=== PATIENT | female | born 1975 | race Caucasian/White ===

== ENCOUNTER → 2016-10-02 | Outpatient (CLI) | payer OTHER ==
--- NOTE | 2016-10-02 08:28 | US ---
Pelvic Ultrasound (Transabdominal and Endovaginal) with color flow and spectral Doppler History: Menorrhagia. Previous laparoscopic procedures for endometriosis. Previous partial resection of ovaries secondary to ovarian cyst. Comparison: December 31, 2007 Findings: The pelvis was first examined through a moderately distended bladder from TRANSABDOMINAL approach. UTERUS: Size: 8.8 x 3.4 x 5.4 cm in longitudinal, AP, and transverse projections. Orientation: Anteverted and slightly retroflexed. Uterine Masses: None seen. Endometrium: Not well delineated. ADNEXA: No adnexal masses. The pelvis was then evaluated from ENDOVAGINAL approach after the bladder was emptied to better evalu ate the uterus and adnexa. UTERUS: Orientation: Anteverted. Masses: None. Endometrium: Normal measuring 2-3 mm in thickness. ADNEXA: The left ovary is not visualized. No adnexal mass is seen on the left. There are 2 small nichelle gn-appearing follicular cysts associated with the right ovary. Right ovary size: 1.7 x 2.3 x 3.3 cm Left ovary: Not delineated Color flow and spectral Doppler: Normal color flow imaging with normal Doppler waveform on the right. Free fluid: None. Other findings: None. Impression: 1. Normal-appearing uterus with normal thin endometrial stripe. 2. Follicular cysts associated with the right ovary. 3. Left ovary not positively identified. No left adnexal mass.
== END ==
LOC: FIMAGING 07:29
PROVIDERS: ATTEND Physician Assistant
DX: N83.01 Follicular cyst of right ovary (principal)

== ENCOUNTER 2018-02-18 16:33 | Emergency (ER) | payer OTHER ==
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
[2018-02-18] MEDS ORDERED: IBUPROFEN 600 MG TAB PO ONE (17:22)
[2018-02-18 18:18] VITALS: BP 118/80
== END 2018-02-18 18:30 | disposition home or self-care (01) ==
DX: S16.1XXA Strain of muscle, fascia and tendon at neck level, initial encounter (principal); S39.012A Strain of muscle, fascia and tendon of lower back, initial encounter; J45.909 Unspecified asthma, uncomplicated; V43.53XA Car driver injured in collision with pick-up truck in traffic accident, initial encounter; Y92.410 Unspecified street and highway as the place of occurrence of the external cause; Y99.8 Other external cause status; Y93.89 Activity, other specified